=== PATIENT | male | born 1955 | race Hispanic/Latino ===

== ENCOUNTER → 2023-06-28 | Outpatient (CLI) | payer OTHER ==
[2023-06-28 22:54] VITALS: PULSE 62; RESP 18
[2023-06-28 23:30] VITALS: PULSE 58; RESP 16
[2023-06-29] VITALS (11 sets, daily range): PULSE 58–68; RESP 4–18
== END | disposition home or self-care (01) ==
LOC: SLP 20:50
PROVIDERS: ATTEND Family Medicine
DX: G47.33 Obstructive sleep apnea (adult) (pediatric) (principal)
CPT/HCPCS: 95810

== ENCOUNTER → 2023-09-18 | Outpatient (CLI) | payer OTHER ==
[2023-09-18] VITALS (14 sets, daily range): PULSE 55–72; RESP 11–40
[2023-09-19] VITALS (12 sets, daily range): PULSE 55–64; RESP 14–36
== END | disposition home or self-care (01) ==
LOC: SLP 19:14
PROVIDERS: ATTEND Family Medicine
DX: G47.33 Obstructive sleep apnea (adult) (pediatric) (principal)
CPT/HCPCS: 95811